=== PATIENT | male | born 1940 | race Caucasian/White ===

== ENCOUNTER 2016-08-16 07:09 | Emergency (ER) | payer OTHER, MEDICARE ==
[~2016-08-16] VITALS: Ht 182.9 cm; Wt 95.3 kg
[~2016-08-16 07:09] MED LIST: ASPIRIN EC325 M2 PO; ASPIRIN EC325 MG PO; ASPIRIN81 M4 PO; BACTROBAN15 GM TOP; CLEOCIN HCL300 M1 PO; CLOPIDOGREL75 M1 PO; CLOPIDOGREL75 MG PO; ECOTRIN81 MG PO; FOLIC ACID1 M1 PO; LIPITOR80 M1 PO; LOPRESSOR 25MG25 MG PO; MECLICOT12.5 MG PO; METFORMIN HCL500 M3 PO; OXYCODONE HCL5 M1 PO; OXYCODONE5 M1 PO; PRINIVIL 5MG5 MG PO; PRINIVIL5 M1 PO; ROBITUSSIN W/CO10 ML PO; VISINE-A EYE AL15 ML OPH; VITAMIN B121000 MCG PO; ZITHROMAX Z-PA250 M1 PO
--- NOTE | 2016-08-16 07:50 | ED CARDIAC/CP/PALPITATIONS ---
History of Present Illness General Chief Complaint: General Adult Stated Complaint: RIGHT ARM PAIN GOING IN TO CHEST Source: patient, old records Exam Limitations: no limitations Vital Signs & Intake/Output Vital Signs & Intake/Output Vital Signs Date Time Temp Pulse Resp B/P B/P Pulse O2 O2 Flow FiO2 Mean Ox Delivery Rate 08/16 0913 96.2 50 20 133/73 96 Room Air 08/16 0715 97.4 55 18 130/75 96 Room Air Allergies Coded Allergies: NO KNOWN ALLERGIES (10/23/15) Reconcile Medications Aspirin (Aspirin*) 81 MG TAB.CHEW 1 TAB PO DAILY HEART DISEASE Atorvastatin Calcium (Lipitor) 80 MG TABLET 1 TAB PO DAILY CHOLESTEROL ( Reported) Clopidogrel Bisulfate (Clopidogrel) 75 MG TABLET 1 TAB PO DAILY BLOOD THINNER (Reported) Folic Acid 1 MG TABLET 1 TAB PO DAILY SUPPLEMENT (Reported) Lisinopril (Prinivil) 5 MG TABLET 1 TAB PO DAILY BP (Reported) Metformin HCl 500 MG TABLET 1 TAB PO DAILY HIGH BLOOD SUGARS (Reported) Metoprolol Tartrate 25 MG TABLET 1 TAB PO BID BP (Reported) Triage Note: PT TO ED FOR R ARM PAIN S/P WASHING DISHES THIS MORNING. PT REPORTING HE WAS WASHING DISHES AND STARTED TO HAVE RIGHT BICEP PAIN THAT RADIATED INTO R SIDE OF HIS CHEST. PT STATING "I HAVE THREE STENTS IN MY ARM MAYBE THEY'RE F*CKED UP OR SOMETHING" PT DENIES SOB, WEST, L SIDED CHEST PAIN, NAUSEA OR VOMITING. Triage Nurses Notes Reviewed? yes Onset: Abrupt Duration: minute(s): (45) Timing: single episode today Quality/Severity: mild Location: RIGHT ARM Radiation: RIGHT CHEST Activities at Onset: WASHING DISHES HPI: This is a 75-year-old male with history of hypertension, coronary disease, status post cardiac stents presents to the ER with chief complaint of right arm pain that started while he was washing a lasagna henry this morning at 7:00. He states it was sharp in the right upper arm and went to his chest. Pain lasted a few minutes following its own.Associated shortness breath palpitations nausea or vomiting. Pain is dissimilar from his previous sharp chest and abdominal pain when he was diagnosed with an MRI. Currently pain is resolved. He took all of his morning medications except for his baby aspirin. He is a former drinker and former smoker quit many years ago. Patient is compliant with his medications on a daily basis. Past History Travel History Traveled to [place] past 21 day No Medical History Any Pertinent Medical History? 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 No Review of Systems Review of Systems Constitutional: Denies: chills, fever. EENTM: Reports: no symptoms. Respiratory: Denies: cough, short of breath. Cardiovascular: Reports: chest pain. Denies: palpitations, peripheral edema. GI: Denies: abdominal pain. Genitourinary: Reports: no symptoms. Musculoskeletal: Reports: back pain, muscle pain. Skin: Reports: no symptoms. Neurological/Psychological: Reports: no symptoms. Hematologic/Endocrine: Denies: bruising, bleeding, polyuria, polydipsia. Immunologic/Allergic: Denies: splenectomy. All Other Systems: Reviewed and Negative Physical Exam Physical Exam General Appearance: well developed/nourished, alert, awake, mild distress, obese Head: atraumatic, normal appearance Eyes: Bilateral: normal appearance, PERRL, EOMI. Ears, Nose, Throat: normal pharynx, hearing grossly normal Neck: normal inspection, supple, full range of motion Respiratory: normal breath sounds, no respiratory distress, RIGHT CHEST WALL TENDERNESS Cardiovascular: regular rate/rhythm Peripheral Pulses: 2+ radial (R), 2+ radial (L) Gastrointestinal: soft, non-tender Extremities: PAIN RIGHT BICEP MUSCLE Neurologic/Psych: no motor/sensory deficits, awake, alert, oriented x 3 Core Measures ACS in differential dx? Yes ASA ordered for poss ACS? Yes-ordered Severe Sepsis Present: No Septic Shock Present: No Progress Differential Diagnosis: AMI, aortic dissection, musculoskeletal pain, myocarditis, pericarditis, pneumonia, pneumothorax, pulmonary embolism, MUSCLE STRAIN, ROTATOR CUFF SPRAIN Plan of Care: Orders Procedure Date/time Status Telemetry/Print Washer 08/16 0759 Active TROPONIN LEVEL 08/16 0756 Complete COMPREHENSIVE METABOLIC PANEL 08/16 0756 Complete CBC WITHOUT DIFFERENTIAL 08/16 0756 Complete EKG 08/16 0710 Active Laboratory Tests 08/16/16 0805: Anion Gap 8, Estimated GFR 49 L, BUN/Creatinine Ratio 15.0, Glucose 117 H, Calcium 9.3, Total Bilirubin 0.9, AST 20, ALT 35, Alkaline Phosphatase 77, Troponin I < 0.01, Total Protein 6.5, Albumin 3.6, Globulin 2.9, Albumin/ Globulin Ratio 1.2, CBC w Diff NO MAN DIFF REQ, RBC 4.99, MCV 86.8, MCH 28.7, RDW 14.6 H, MPV 10.1, Gran % 66.8, Lymphocytes % 17.5 L, Monocytes % 9.2, Eosinophils % 4.9, Basophils % 1.6, Absolute Granulocytes 4.1, Absolute Lymphocytes 1.1 L, Absolute Monocytes 0.6, Absolute Eosinophils 0.3, Absolute Basophils 0.1, PUBS MCHC 33.1 08/16/2016 9:11:00 AM Patient without any other further episodes of right arm pain or chest pain. Aspirin given in the ER. Pain is extremely atypical for cardiac disease. He will not exert himself today I instructed him and the family that if he has any other episode of chest pain or arm pain without exertion that he should return to the ER. (BILL DAY,ELEONORA) Initial ED EKG: NSR Prior EKG: unchanged Departure Departure Time of Disposition: 910 Disposition: HOME OR SELF CARE Condition: Stable Clinical Impression Primary Impression: Pain, arm, right Referrals: JAZMIN DAY,ANDREW Amador (PCP/Family) HECTOR DAY,Tiki SUAREZ Additional Instructions: Avoid any exertion today. If you have another episode of right arm pain or chest pain at rest please return to the ER. Follow up with Dr. Renteria in the office. Departure Forms: Customer Survey General Discharge Information Critical Care Note Critical Care Note Critical Care Time: non-applicable
[2016-08-16 08:15] LABS: ABSOLUTE EOSINOPHIL COUNT 0.3 /CUMM (0.0-0.7); ABSOLUTE GRANULOCYTE CT 4.1 /CUMM (1.4-6.5); ABSOLUTE LYMPH COUNT 1.1 /CUMM (1.2-3.4); ABSOLUTE MONOCYTE COUNT 0.6 /CUMM (0.10-0.60); WHITE BLOOD CELL COUNT 6.2 /CUMM (4.8-10.8)
[2016-08-16 08:18] LABS: ABSOLUTE BASOPHIL COUNT 0.1 /CUMM (0.0-0.2); BASOPHIL % 1.6 % (0.0-2.0); EOSINOPHIL % 4.9 % (0-5); GRANULOCYTE % 66.8 % (42.2-75.2); HEMATOCRIT 43.3 % (42-52); MEAN CORPUSCULAR HGB 28.7 PG (27.0-31.0); MEAN CORPUSCULAR HGB CONC 33.1 G/DL (33.0-37.0); MEAN CORPUSCULAR VOLUME 86.8 FL (80.0-94.0); MEAN PLATELET VOLUME 10.1 FL (7.4-10.4); PLATELET COUNT 171 /CUMM (130-400); RBC DISTRIBUTION WIDTH 14.6 % (11.5-14.5); RED BLOOD CELL CT 4.99 /CUMM (4.70-6.10)
[2016-08-16] MEDS ORDERED: METOPROLOL TART25 M1 PO (08:33)
[2016-08-16 09:13] VITALS: BP 133/73
== END 2016-08-16 09:17 ==
LOC: ERH 07:09
PROVIDERS: Emergency Medicine
DX: M79.601 Pain in right arm (principal)
CPT/HCPCS: 93005; 93010; J3490

== ENCOUNTER 2017-05-08 14:45 | Emergency (ER) | payer OTHER, MEDICARE ==
[~2017-05-08] VITALS: Ht 167.6 cm; Wt 95.3 kg
[~2017-05-08 14:45] MED LIST changes: +AZITHROMYCIN250 M1 PO; +KEFLEX500 M1 PO; +METOPROLOL TART25 M1 PO; +TESSALON PERLE100 M1 PO; +ZITHROMAX250 M2 PO
--- NOTE | 2017-05-08 14:55 | ED CARDIAC/CP/PALPITATIONS ---
History of Present Illness General Chief Complaint: Chest Pain Stated Complaint: CP, X 10 MIN Source: patient Exam Limitations: no limitations Allergies Coded Allergies: NO KNOWN ALLERGIES (10/23/15) Reconcile Medications Aspirin (Aspirin*) 81 MG TAB.CHEW 1 TAB PO DAILY HEART DISEASE Atorvastatin Calcium (Lipitor) 80 MG TABLET 1 TAB PO DAILY CHOLESTEROL ( Reported) Clopidogrel Bisulfate (Clopidogrel) 75 MG TABLET 1 TAB PO DAILY BLOOD THINNER (Reported) Folic Acid 1 MG TABLET 1 TAB PO DAILY SUPPLEMENT (Reported) Lisinopril (Prinivil) 5 MG TABLET 1 TAB PO DAILY BP (Reported) Metformin HCl 500 MG TABLET 1 TAB PO DAILY HIGH BLOOD SUGARS (Reported) Metoprolol Tartrate 25 MG TABLET 1 TAB PO BID BP (Reported) Triage Nurses Notes Reviewed? yes Onset: Abrupt Duration: minute(s): (10-15) Timing: recent history Radiation: no radiation HPI: 76-year-old male comes into the emergency room with complaints of chest pain. Symptoms began about 15 minutes prior to arrival. Sharp. Denies any shortness of breath fever chills vomiting. Denies any diaphoresis. Patient was lying down when he started to experience pain. History of coronary disease with multiple stents in his heart. (Alberto PAVON,James) Vital Signs & Intake/Output Vital Signs & Intake/Output Vital Signs Date Time Temp Pulse Resp B/P B/P Pulse O2 O2 Flow FiO2 Mean Ox Delivery Rate 05/08 2016 97 Room Air 05/08 2005 98.0 70 20 148/80 96 05/08 1901 98.1 69 18 152/84 96 Room Air 05/08 1456 96.0 76 20 152/85 96 Room Air ED Intake and Output 05/09 0000 05/08 1200 Intake Total Output Total Balance Patient 210 lb Weight Weight Reported by Patient Measurement Method (Hollis DAY,Alexander Ellison) Past History Travel History Traveled to [place] past 21 day No Medical History Any Pertinent Medical History? see below for history Neurological: NONE EENT: NONE Cardiovascular: CAD, hypertension, hyperlipidemia, myocardial infarction, STENTS Respiratory: NONE Gastrointestinal: GERD Hepatic: NONE Renal: NONE Musculoskeletal: chronic back pain Psychiatric: alcohol dependence Endocrine: diabetes Blood Disorders: NONE Cancer(s): NONE PROPERTY SPECIALIST/Reproductive: NONE History of MRSA: No History of VRE: No History of CDIFF: No Tetanus Vaccine: 11/15/16 Surgical History Surgical History: 4 STENTS HERNIA REPAIR Psychosocial History Who do you live with Friend Services at Home None What is your primary language Slovak Family History Family History, If Any: Relation not specified for: *No pertinent family history Hx Contributory? No (James Byrd) Review of Systems Review of Systems Constitutional: Reports: no symptoms. EENTM: Reports: no symptoms. Respiratory: Reports: no symptoms. Cardiovascular: Reports: see HPI. GI: Reports: no symptoms. Genitourinary: Reports: no symptoms. Musculoskeletal: Reports: no symptoms. Skin: Reports: no symptoms. Neurological/Psychological: Reports: no symptoms. Hematologic/Endocrine: Reports: no symptoms. Immunologic/Allergic: Reports: no symptoms. All Other Systems: Reviewed and Negative (James Byrd) Physical Exam Physical Exam General Appearance: well developed/nourished, no apparent distress, alert, awake Head: atraumatic, normal appearance Eyes: Bilateral: normal appearance, EOMI. Ears, Nose, Throat: normal ENT inspection, hearing grossly normal Neck: normal inspection Respiratory: normal breath sounds, no respiratory distress Cardiovascular: regular rate/rhythm Back: normal inspection Extremities: normal inspection Neurologic/Psych: awake, alert, oriented x 3, normal gait, normal mood/affect Skin: intact, normal color (James Byrd) Core Measures ACS in differential dx? No CVA/TIA Diagnosis No Sepsis Present: No Sepsis Focused Exam Completed? No (Hollis DAY,Alexander Ellison) Progress Differential Diagnosis: AMI, atrial fibrillation, cholecystitis, costochondritis , hyperthyroid, hyperventilation, intracranial hemorrhage, musculoskeletal pain, myocarditis, pancreatitis, pericarditis, pneumonia, pneumothorax, pulmonary embolism, PUD/GERD, PVCs/PACs, sepsis Diagnostic Imaging: Viewed by Me: Radiology Read. Discussed w/RAD: Radiology Read. Radiology Impression: PATIENT: CAROL DOWELL PRESENT AGE: 76 PATIENT ACCOUNT NO: [id number] : 39 LOCATION: [facility] ORDERING PHYSICIAN: James PAVON SERVICE DATE: 05/08/173670 EXAM TYPE : RAD - XRY-CHEST XRAY, TWO VIEWS EXAMINATION: XR CHEST CLINICAL INFORMATION: Chest pain COMPARISON: 01/30/2017 TECHNIQUE: 2 views of the chest were obtained. FINDINGS: The lungs are well expanded. Pleural thickening along the right lateral chest wall is unchanged. No consolidation, edema, or effusion. No pneumothorax. The cardiomediastinal silhouette is unchanged. No acute osseous abnormality. IMPRESSION: No acute pulmonary findings. Pleural thickening along the lateral right hemithorax again noted. DICTATED BY: Abdirizak Jeronimo MD DATE/TIME DICTATED:05/08/171531 CLOTH BLEACHING RANGE TENDER:ALBINA DATE/TIME TRANSCRIBED:05/08/171531 CONFIDENTIAL, DO NOT COPY WITHOUT APPROPRIATE AUTHORIZATION. <Electronically signed in Other Vendor System> SIGNED BY: Abdirizak Jeronimo MD 05/08/171537 Initial ED EKG: normal sinus rhythm, rate (80), nonspecific ST T wave chg (James Byrd) Repeat EKG: unchanged Hand-Off Endorsed To: Hollis DAY,Alexander Ellison Endorsed Time: 1899 Pending: EKG, other (REPEAT TROPONIN) (Laisha DAY,Dolores) Plan of Care: Orders Procedure Date/time Status TROPONIN LEVEL 05/08 1900 Complete EKG 05/08 1900 Active PARTIAL THROMBOPLASTIN TIME 05/08 1456 Complete PROTHROMBIN TIME 05/08 1456 Complete TROPONIN LEVEL 05/08 1454 Complete COMPREHENSIVE METABOLIC PANEL 05/08 1454 Complete CBC WITHOUT DIFFERENTIAL 05/08 1454 Complete EKG 05/08 1446 Active Laboratory Tests 05/08/17 1857: Troponin I < 0.01 05/08/17 1500: Anion Gap 11, Estimated GFR 49 L, BUN/Creatinine Ratio 19.3, Glucose 106 H, Calcium 9.3, Total Bilirubin 0.7, AST 37, ALT 44, Alkaline Phosphatase 84, Troponin I < 0.01, Total Protein 6.9, Albumin 3.8, Globulin 3.1, Albumin/ Globulin Ratio 1.2, PT 11.3, INR 1.04, APTT 30, CBC w Diff NO MAN DIFF REQ, RBC 5.09, MCV 86.5, MCH 29.1, MCHC 33.6, RDW 14.5, MPV 9.8, Gran % 69.4, Lymphocytes % 18.9 L, Monocytes % 8.0, Eosinophils % 3.0, Basophils % 0.7, Absolute Granulocytes 5.2, Absolute Lymphocytes 1.4, Absolute Monocytes 0.6, Absolute Eosinophils 0.2, Absolute Basophils 0.1 (Alexander Shafer MD) Departure Departure Condition: Stable Departure Forms: Customer Survey General Discharge Information (James Byrd) Departure Clinical Impression Primary Impression: Chest pain at rest PA/HEEL SPRAYER Co-Sign Statement Statement: ED Attending supervision documentation- [X] I saw and evaluated the patient. I have also reviewed all the pertinent lab results and diagnostic results. I agree with the findings and the plan of care as documented in the PA's/HEEL SPRAYER's documentation. [X] I have reviewed the ED Record and agree with the PA's/HEEL SPRAYER's documentation. [] Additions or exceptions (if any) to the PAs/HEEL SPRAYER's note and plan are summarized below: [] (Laisha DAY,Dolores) Departure Disposition: HOME OR SELF CARE Referrals: Reji DAY,Peter Amador (PCP/Family) Tiki Young MD Additional Instructions: FOLLOW UPW ITH DR. YOUNG RETURN IF SYMPTOMS WORSEN OR FOR ANY CONCERNS (Alexander Shafer MD) Critical Care Note Critical Care Note Critical Care Time: non-applicable (Alexander Shafer MD)
[2017-05-08 15:15] LABS: ABSOLUTE BASOPHIL COUNT 0.1 /CUMM (0.0-0.2); ABSOLUTE EOSINOPHIL COUNT 0.2 /CUMM (0.0-0.7); ABSOLUTE GRANULOCYTE CT 5.2 /CUMM (1.4-6.5); ABSOLUTE LYMPH COUNT 1.4 /CUMM (1.2-3.4); ABSOLUTE MONOCYTE COUNT 0.6 /CUMM (0.10-0.60); BASOPHIL % 0.7 % (0.0-2.0); GRANULOCYTE % 69.4 % (42.2-75.2); MEAN CORPUSCULAR HGB 29.1 PG (27.0-31.0); MEAN CORPUSCULAR HGB CONC 33.6 G/DL (33.0-37.0); MEAN CORPUSCULAR VOLUME 86.5 FL (80.0-94.0); MEAN PLATELET VOLUME 9.8 FL (7.4-10.4); PLATELET COUNT 193 /CUMM (130-400); RBC DISTRIBUTION WIDTH 14.5 % (11.5-14.5); RED BLOOD CELL CT 5.09 /CUMM (4.70-6.10); WHITE BLOOD CELL COUNT 7.5 /CUMM (4.8-10.8)
[2017-05-08 15:18] LABS: PT 11.3 SEC (9.4-12.5); PTT 30 SEC (25-37)
--- NOTE | 2017-05-08 15:38 | RADIOLOGY REPORT ---
EXAMINATION: XR CHEST CLINICAL INFORMATION: Chest pain COMPARISON: 01/30/2017 TECHNIQUE: 2 views of the chest were obtained. FINDINGS: The lungs are well expanded. Pleural thickening along the right lateral chest wall is unchanged. No consolidation, edema, or effusion. No pneumothorax. The cardiomediastinal silhouette is unchanged. No acute osseous abnormality. IMPRESSION: No acute pulmonary findings. Pleural thickening along the lateral right hemithorax again noted.
[2017-05-08 20:05] VITALS: BP 148/80
== END 2017-05-08 20:17 ==
LOC: ERH 14:45
PROVIDERS: Physician Assistant Medical
DX: R07.9 Chest pain, unspecified (principal)
CPT/HCPCS: 71046; 93005; 93010

== ENCOUNTER 2017-09-05 20:56 | Observation (INO) | payer OTHER, MEDICARE ==
[~2017-09-05] VITALS: Ht 172.7 cm; Wt 95.3 kg
[2017-09-05 21:50] LABS: ABSOLUTE BASOPHIL COUNT 0 /CUMM (0.0-0.2); ABSOLUTE EOSINOPHIL COUNT 0.2 /CUMM (0.0-0.7); ABSOLUTE GRANULOCYTE CT 3.5 /CUMM (1.4-6.5); ABSOLUTE LYMPH COUNT 1.2 /CUMM (1.2-3.4); ABSOLUTE MONOCYTE COUNT 0.8 /CUMM (0.10-0.60); BASOPHIL % 0.3 % (0.0-2.0); EOSINOPHIL % 3.3 % (0-5); GRANULOCYTE % 62.1 % (42.2-75.2); MEAN CORPUSCULAR HGB 29.2 PG (27.0-31.0); MEAN CORPUSCULAR HGB CONC 33.5 G/DL (33.0-37.0); MEAN CORPUSCULAR VOLUME 87.3 FL (80.0-94.0); MEAN PLATELET VOLUME 9.9 FL (7.4-10.4); PLATELET COUNT 180 /CUMM (130-400); RBC DISTRIBUTION WIDTH 14.6 % (11.5-14.5); RED BLOOD CELL CT 4.81 /CUMM (4.70-6.10); WHITE BLOOD CELL COUNT 5.6 /CUMM (4.8-10.8)
--- NOTE | 2017-09-05 22:46 | ED CARDIAC/CP/PALPITATIONS ---
History of Present Illness General Chief Complaint: Chest Pain Stated Complaint: CP X1 HOUR, TOOK NITRO, NO RELIEF Source: patient Exam Limitations: no limitations Vital Signs & Intake/Output Vital Signs & Intake/Output Vital Signs Date Time Temp Pulse Resp B/P B/P Pulse O2 O2 Flow FiO2 Mean Ox Delivery Rate 09/06 0002 97.8 58 18 119/63 09/06 0001 97.8 58 18 119/63 95 Room Air 09/05 2110 97.7 70 18 130/76 95 Room Air ED Intake and Output 09/06 0000 09/05 1200 Intake Total Output Total Balance Patient 210 lb Weight Weight Reported by Patient Measurement Method Allergies Coded Allergies: NO KNOWN ALLERGIES (10/23/15) Reconcile Medications Aspirin (Aspirin*) 81 MG TAB.CHEW 1 TAB PO DAILY HEART DISEASE Atorvastatin Calcium (Lipitor) 80 MG TABLET 1 TAB PO DAILY CHOLESTEROL ( Reported) Clopidogrel Bisulfate (Clopidogrel) 75 MG TABLET 1 TAB PO DAILY BLOOD THINNER (Reported) Folic Acid 1 MG TABLET 1 TAB PO DAILY SUPPLEMENT (Reported) Lisinopril (Prinivil) 5 MG TABLET 1 TAB PO DAILY BP (Reported) Metformin HCl 500 MG TABLET 1 TAB PO DAILY HIGH BLOOD SUGARS (Reported) Metoprolol Tartrate 25 MG TABLET 1 TAB PO BID BP (Reported) Triage Note: PT FROM HOME C/O CP X20 MINS PRIOR TO ARRIVAL. PT STATES HE WAS WASHING DISHING AND BEGAN TO HAVE A SHARP STABBING LEFT CHEST WALL PAIN THAT IS NONRADIATING. PT STATES LEFT ARM NUMBNESS AND PAIN. PT A&0X3, DENIES N/V, JAW OR BACK PAIN. BSG 114, TYPE 1 DIABETIC. PT HAS HX OF 4 STENTS PLACED , CAD, HTN, HYPERLIPIDEMIA, ALCOHOL DEPENDENCE AND DIABETES. PTS VSS. EKG COMPLETED. Triage Nurses Notes Reviewed? yes Onset: Abrupt Duration: minute(s): (30), better, gone now Timing: single episode today Quality/Severity: moderate, sharp, stabbing Location: LEFT CHEST Radiation: shoulders (LEFT) Activities at Onset: activity Prior Chest Pain/Card Workup: cardiac cath, heart attack Modifying Factors: Improves With: nitroglycerin. Nitro Today/Relief: 0.4 mg x 1, provided at home, complete relief Aspirin Today: 81 mg x 1, provided at home HPI: 76-year-old male history of coronary artery disease hypertension and hyperlipidemia GA with stents presents for evaluation of chest pain. Patient reports symptoms started about 30 minutes prior to presentation. He was washing dishes when he suddenly felt acute onset of sharp left-sided chest pain. The pain radiated into his left arm and shoulder. Patient reports she immediately took a nitroglycerin and the symptoms resolved several minutes later. Several minutes later pain did return again but resolved several minutes later again. There was associated shortness of breath. No sweats or chills no nausea or vomiting. Patient has been a cigarette the medics since. He apparently had a normal cardiac cath in June. No recent surgery or recent trauma no lower extremity edema no hemoptysis (Herbie Dill) Past History Travel History Traveled to [place] past 21 day No Medical History Any Pertinent Medical History? see below for history Neurological: NONE EENT: NONE Cardiovascular: CAD, hypertension, hyperlipidemia, myocardial infarction, STENTS Respiratory: NONE Gastrointestinal: GERD Hepatic: NONE Renal: NONE Musculoskeletal: chronic back pain Psychiatric: alcohol dependence Endocrine: diabetes Blood Disorders: NONE Cancer(s): NONE FLIGHT SUPERINTENDENT/Reproductive: NONE History of MRSA: No History of VRE: No History of CDIFF: No Tetanus Vaccine: 11/15/16 Surgical History Surgical History: 4 STENTS HERNIA REPAIR Psychosocial History Who do you live with Friend Services at Home None What is your primary language Urdu Tobacco Use: Current Not Daily Daily Tobacco Use Amount/Type: Cigar or Pipe use daily Family History Family History, If Any: Relation not specified for: *No pertinent family history Hx Contributory? No (Herbie Dill) Review of Systems Review of Systems Constitutional: Reports: no symptoms. EENTM: Reports: no symptoms. Respiratory: Reports: see HPI, short of breath. Cardiovascular: Reports: see HPI, chest pain. GI: Reports: no symptoms. Genitourinary: Reports: no symptoms. Musculoskeletal: Reports: no symptoms. Skin: Reports: no symptoms. Neurological/Psychological: Reports: no symptoms. Hematologic/Endocrine: Reports: no symptoms. Immunologic/Allergic: Reports: no symptoms. All Other Systems: Reviewed and Negative (Herbie Dill) Physical Exam Physical Exam General Appearance: well developed/nourished, no apparent distress, alert, awake Head: atraumatic, normal appearance Eyes: Bilateral: normal appearance, PERRL, EOMI. Ears, Nose, Throat: hearing grossly normal Neck: normal inspection, supple, full range of motion Respiratory: normal breath sounds, chest non-tender, no respiratory distress, lungs clear Cardiovascular: regular rate/rhythm, normal peripheral pulses Peripheral Pulses: 2+ radial (R), 2+ radial (L) Gastrointestinal: normal bowel sounds, soft, non-tender, no organomegaly Back: normal inspection, normal range of motion, no vertebral tenderness Extremities: normal inspection, normal range of motion, no edema Neurologic/Psych: no motor/sensory deficits, awake, alert, oriented x 3, normal gait Skin: intact, normal color, warm/dry Core Measures ACS in differential dx? Yes CVA/TIA Diagnosis No Sepsis Present: No Sepsis Focused Exam Completed? No (Herbie Dill) Progress Differential Diagnosis: AMI, aortic dissection, atrial fibrillation, cholecystitis, CHF/pulm edema, costochondritis, musculoskeletal pain, pancreatitis, pericarditis, pneumonia, pneumothorax, PSVT, pulmonary embolism, PUD/GERD, PVCs/PACs, rib fracture, unstable angina Plan of Care: Orders Procedure Date/time Status Nothing by Mouth 09/[address] in observation 09/06 001 Active Patient Data 09/06 0010 Active Saline Lock 09/05 235 Active Misc Message 09/05 235 Active ED Holding Orders 09/05 2354 Active Vital Signs 09/05 235 Active Code Status 09/05 235 Active Add-on Test (ER Only) 09/05 215 Active MAGNESIUM 09/05 2120 Complete ETHANOL 09/05 2120 Complete TROPONIN LEVEL 09/06 2103 Complete COMPREHENSIVE METABOLIC PANEL 09/06 2103 Complete CBC WITHOUT DIFFERENTIAL 09/06 2103 Complete EKG 09/05 2056 Active Laboratory Tests 09/05/17 212: Anion Gap 12, Estimated GFR 45 L, BUN/Creatinine Ratio 15.3, Glucose 114 H, Calcium 9.2, Magnesium 1.8, Total Bilirubin 0.7, AST 22, ALT 22, Alkaline Phosphatase 56, Troponin I < 0.01, Total Protein 6.3, Albumin 3.4 L, Globulin 2.9, Albumin/Globulin Ratio 1.2, CBC w Diff NO MAN DIFF REQ, RBC 4.81, MCV 87.3, MCH 29.2, MCHC 33.5, RDW 14.6 H, MPV 9.9, Gran % 62.1, Lymphocytes % 20.5, Monocytes % 13.8 H, Eosinophils % 3.3, Basophils % 0.3, Absolute Granulocytes 3.5, Absolute Lymphocytes 1.2, Absolute Monocytes 0.8 H, Absolute Eosinophils 0.2, Absolute Basophils 0, Serum Alcohol < 10.0 Patient is here with acute onset of chest pain that started while he was doing dishes. The chest pain is also minutes after taking nitroglycerin. It has been astigmatic since. There was associated shortness of breath the pain is in the left chest and radiates to the left arm. Patient does have stents he has a history of acute coronary syndromes. Patient will be admitted to the hospital for further evaluation and treatment to rule out acute coronary syndrome. Patient had nitroglycerin responsive chest pain. Case discussed with Dr. Eldridge he agrees. Diagnostic Imaging: Viewed by Me: Radiology Read. Discussed w/RAD: Radiology Read. CXR Impression: PATIENT: CAROL DOWELL PRESENT AGE : 76 PATIENT ACCOUNT NO: [id number] : 39 LOCATION: [facility] ORDERING PHYSICIAN: Herbie PAVON SERVICE DATE: 09/05/17 EXAM TYPE: RAD - XRY- PORTABLE CHEST XRAY EXAMINATION: XR PORTABLE CHEST CLINICAL INFORMATION: Pneumonia, congestive heart failure, chest pain COMPARISON: 05/08/2017 TECHNIQUE : Portable frontal view of the chest was obtained. FINDINGS: Lung volumes are low. No focal consolidation or mass. No pleural effusion or pneumothorax. Cardiac silhouette is prominent, likely accentuated by AP technique and low lung volumes. Degenerative changes of the bilateral shoulders. IMPRESSION: Low lung volumes but no acute pulmonary disease. DICTATED BY: Librado Pink MD DATE/ TIME DICTATED:09/05/172312 HOSPITAL NURSING ASSISTANT:ALBINA DATE/TIME TRANSCRIBED: 09/05/172312 CONFIDENTIAL, DO NOT COPY WITHOUT APPROPRIATE A Initial ED EKG: normal sinus rhythm, DIFFUSE t-WAVE FLATTENING APPEARS SOMEWHAT WORSE COMPARED TO PREVIOUS Prior EKG: unchanged (Herbie Dill) Departure Departure Disposition: STILL A PATIENT Condition: Stable Clinical Impression Primary Impression: Chest pain Qualifiers: Chest pain type: unspecified Qualified Code: R07.9 - Chest pain, unspecified Referrals: Reji DAY,Peter Amador (PCP/Family) Departure Forms: Customer Survey General Discharge Information Observation Note Spoke With: Harshal Mckinley MD Physician Advisor Notified: MAC ELDRIDGE DO Place Patient In: Non-ED OBS Care Area Rationale for Observation: My rational for observation is as follows [serial labs, echocardiogram, serial EKGs, telemetry, cardiology]. (Herbie Dill) PA/ADOBE LAYER Co-Sign Statement Statement: ED Attending supervision documentation- [x] I saw and evaluated the patient. I have also reviewed all the pertinent lab results and diagnostic results. I agree with the findings and the plan of care as documented in the PA's/ADOBE LAYER's documentation. [] I have reviewed the ED Record and agree with the PA's/ADOBE LAYER's documentation. [] Additions or exceptions (if any) to the PAs/ADOBE LAYER's note and plan are summarized below: [] I saw and evaluated the patient. He was in no acute distress on my exam. He had no chest pain at that time. He has a history of coronary artery disease. He was to be placed in observation. (Mac Eldridge DO) Critical Care Note Critical Care Note Critical Care Time: non-applicable (Herbie Dill)
--- NOTE | 2017-09-05 23:18 | RADIOLOGY REPORT ---
EXAMINATION: XR PORTABLE CHEST CLINICAL INFORMATION: Pneumonia, congestive heart failure, chest pain COMPARISON: 05/08/2017 TECHNIQUE: Portable frontal view of the chest was obtained. FINDINGS: Lung volumes are low. No focal consolidation or mass. No pleural effusion or pneumothorax. Cardiac silhouette is prominent, likely accentuated by AP technique and low lung volumes. Degenerative changes of the bilateral shoulders. IMPRESSION: Low lung volumes but no acute pulmonary disease.
--- NOTE | 2017-09-06 00:48 | History & Physical ---
John PaulMary 09/06/17 0048: General Information and HPI History of Present Illness: Chris Harrison is a 76 YO very pleasant and affable man with a PMHx. of HTN, HLD, and Type 2 DM who presents to the ED with a chief complaint of "chest pain. " Patient states that he experienced chest pain today while washing dishes in the kitchen and that the chest pain lasted approximately 20 minutes. Patient states the pain was located in the left-side of his chest with radiation into his left hand. Patient described the pain as a sharp pain and only felt a similar pain before several years ago. Patient denies engaging in any activities today where he would be overexerting himself. Patient does admit to drinking 3 cups of coffee regularly. Patient denies any shortness of breath, lightheadedness, dizziness, weakness, cough, dysuria, and fevers. Patient states he watches his salt intake and generally has a good appetite. Patient states he is retired. Patient denies drinking alcoholic beverages. Patient is a former smoker who quit more than 20 years ago, and typically used to smoke cigars. Patient follows Dr. Renteria (Cardiology) whom he last saw in June 2017. Patient had a normal cardiac catherization test during that previous visit. Allergies/Medications Allergies: Coded Allergies: NO KNOWN ALLERGIES (10/23/15) Home Med list Aspirin (Aspirin*) 81 MG TAB.CHEW 1 TAB PO DAILY HEART DISEASE Atorvastatin Calcium (Lipitor) 80 MG TABLET 1 TAB PO DAILY CHOLESTEROL ( Reported) Clopidogrel Bisulfate (Clopidogrel) 75 MG TABLET 1 TAB PO DAILY BLOOD THINNER (Reported) Folic Acid 1 MG TABLET 1 TAB PO DAILY SUPPLEMENT (Reported) Lisinopril (Prinivil) 5 MG TABLET 1 TAB PO DAILY BP (Reported) Metformin HCl 500 MG TABLET 1 TAB PO DAILY HIGH BLOOD SUGARS (Reported) Metoprolol Tartrate 25 MG TABLET 1 TAB PO BID BP (Reported) Past History Travel History Traveled to [place] past 21 day No Medical History Neurological: NONE EENT: NONE Cardiovascular: CAD, hypertension, hyperlipidemia, myocardial infarction, STENTS Respiratory: NONE Gastrointestinal: GERD Hepatic: NONE Renal: NONE Musculoskeletal: chronic back pain Psychiatric: alcohol dependence Endocrine: diabetes Blood Disorders: NONE Cancer(s): NONE CLINICAL PROGRAM DIRECTOR/Reproductive: NONE History of MRSA: No History of VRE: No History of CDIFF: No Tetanus Vaccine: 11/15/16 Surgical History Surgical History: 4 STENTS HERNIA REPAIR Past Family/Social History Family History Relations & Conditions if any Relation not specified for: *No pertinent family history Psychosocial History Who Do You Live With? self Services at Home: None Smoking Status: Former Smoker ETOH Use: denies use Illicit Drug Use: denies illicit drug use Functional Ability ADLs Independent: dressing, eating, toileting, bathing. Ambulation: independent IADLs Independent: shopping, housework, finances, food prep, telephone, transportation , medication admin. Review of Systems Review of Systems Constitutional: Denies: chills, diaphoresis, fever, weakness. EENTM: Denies: double vision, visual changes. Cardiovascular: Reports: chest pain. Denies: edema, orthopena, palpitations, peripheral edema. Respiratory: Denies: cough, orthopnea, short of breath. GI: Denies: abdominal pain, diarrhea, nausea. Genitourinary: Denies: dysuria, frequency. Musculoskeletal: Denies: joint pain. Skin: Denies: no symptoms. Neurological/Psychological: Denies: headache. Exam & Diagnostic Data Last 24 Hrs of Vital Signs/I&O Vital Signs Date Time Temp Pulse Resp B/P B/P Pulse O2 O2 Flow FiO2 Mean Ox Delivery Rate 09/06 0002 97.8 58 18 119/63 0711 0001 97.8 58 18 119/63 95 Room Air 09/05 2110 97.7 70 18 130/76 95 Room Air Intake & Output 09/06 0800 09/06 0000 09/05 1600 Intake Total Output Total Balance Patient 210 lb 210 lb Weight Weight Reported by Patient Measurement Method Physical Exam General Appearance Alert, Oriented X3, Cooperative, No Acute Distress Skin No Rashes HEENT Atraumatic, PERRLA Neck Supple Lymphatic Cervical nl Cardiovascular Normal S1, Normal S2, No Murmurs Lungs Clear to Auscultation Abdomen Normal Bowel Sounds, Soft, No Tenderness Neurological Strength at 5/5 X4 Ext, Normal Tone, Sensation Intact Extremities Normal Pulses, 1+ edema b/l lower extremities Assessment/Plan Assessment: Pertinent Labs/Imaging: - Troponin x1 normal (0.01) - CXR: Low lung volumes but no acute pulmonary disease. - EKG: NSR, T Wave Flattening V5/V6 Etiology in this case of angina pectoris with history of typical chest pain symptoms, normal EKG and Troponins with minimal lower extremity edema on physical exam is likely related to unstable angina. Differential also includes costochondritis, GERD, myocarditis, Prinzmetal angina. Treatment includes ASA therapy for cardiac benefit and follow up with labs/imaging/EKG. ASSESSMENT: 1. Unstable Angina, ACS 2. h/o HTN 3. h/o HLD 4. h/o Type 2 DM Unstable Angina - Admit to telemetry for cardiac monitoring and assessment of vitals - AM Cardiology Consultation; wait on Heparin IV anti-thrombotic therapy upon recommendation from Cardioloy Consult - ASA 81 mg and Atorvastatin - Metoprolol 25 mg BID - Clopidogrel 75 mg; Lisinopril 5 mg - Serial EKG and Troponins (follow at 10 AM) - NPO; Await recommendation for morning ECHO - Continue home medications - DVT PPx. As Ranked By This Provider Problem List: 1. Unstable angina 2. Hyperlipidemia 3. HYPERTENTION 4. ACUTE CORONARY SYNDROME Core Measures/Misc (11/13) Acute Coronary Syndrome ACS Diagnosis: Yes Congestive Heart Failure Congestive Heart Failure Diagnosis No Cerebrovascular Accident CVA/TIA Diagnosis: No VTE (View Protocol) VTE Risk Factors Acute Medical Illness No Mechanical VTE Prophylaxis d/t N/A MechProphylax Ordered No VTE Pharm Prophylaxis d/t NA PharmProphylax ordered Sepsis (View protocol) Sepsis Present: No If YES complete Sepsis Event Note If YES complete Sepsis Event Note Harshal Mckinley MD 09/06/17 0159: Core Measures/Misc (11/13) Sepsis (View protocol) If YES complete Sepsis Event Note If YES complete Sepsis Event Note Attending MD Review Statement Attending Statement Attending MD Statement: examined this patient, discuss w/resident/PA/PRODUCTION PAINTER, agreed w/resident/PA/PRODUCTION PAINTER, reviewed EMR data (avail) Attending Assessment/Plan: 76M PMH CAD s/p stent, CKD stage 3A, HTN, T2DM, GERD, cervical myelopathy with crushing left sided chest pain that radiating to left arm that started while washing dishes, took a SL nitro with relief of pain within minutes. Asymptomatic here, EKG NSR unchanged from prior, troponin negative. No SOB, diaphoresis, lightheadedness. WIll place in observation in telemetry, serial troponin and EKG, cardiology consult, continue home medications, DVT PPx Manolo Carolina 09/06/17 4266: Observation Initial Note - I have personally examined CHRIS HARRISON on 09/06/17 at 0436. The disposition of CHRIS HARRISON is uncertain at this time and before a determination can be made, he requires a period of observation for the following reasons [chest pain] Core Measures/Misc (11/13) Sepsis (View protocol) If YES complete Sepsis Event Note If YES complete Sepsis Event Note Resident Review Statement Resident Statement: examined this patient, discussed with internal communications specialist, reviewed images Other Findings: Mr Harrison is a 76 year old male w/ a PMHx of h/o CAD s/p stent, CKD stage 3A , HTN, T2DM, GERD, cervical myelopathy came to the hospital with a chief concern of chest discomfort 20 minutes prior to that or to the ER. He was apparently washing his dishes at the time. Pain localized to the left side of the chest, non radiating. He also reported left arm numbness, and the episode lasted for not more than 20 min. Did not have any diaphoresis, nausea or vomiting or back pain. His recent stress test was negative. Other ROS negative. At the time of admission-temperature 97.7, pulse rate 70, respiration 18, blood pressure 1 3776, pulse ox 94% on room air. General Exam: AAOx3, No acute distress, Skin: No rashes, no breakdown;HEENT: PERRLA, EOMI;Neck: Supple, No JVD; No cervical lymphadenopathy;CVS: Reg Rate, Normal S1,S2, No MGR;Resp: Normal air entry, no ronchi/rales;Abdomen: Soft, No tenderness, Normal Bowel Sounds;Neuro: Normal Speech, Strength 5/5 b/l x 4 extremities, Sensation intact, CN III-XII NL, Reflexes 2+;Extremities: No cyanosis, 2+ pedal edema Pertinent Findings: WBC 5.6, hemoglobin 14.1, platelet count 180. Sodium 142, potassium 4.1, chloride 103 next line, dioxide 26, anion gap 12 BUN 23, creatinine 1.5 (baseline 1.3 from 1.5), glucose 114. Troponin I of 0.01. Alcohol negative. Chest x ray- Low lung volumes but no acute pulmonary disease. Echo- 29 April 2015 2. Mild aortic sclerosis is present with minimal to mild aortic insufficiency. Mild dilatation of the ascending aorta is present. 3. Mitral leaflet thickening is present with mild mitral insufficiency and mild left atrial dilatation. There is no valvular prolapse. 4. No pericardial fluid was identified on the study. 5. The left ventricular chamber size is normal. Mild to moderate concentric hypertrophy is present. Fibrosis of the posteromedial papillary muscle is present. The ejection fraction is normal. Accurate wall motion assessment was not possible due to the quality of the images obtained. 6. The right heart chambers and valvular structures were not optimally visualized. The right ventricular systolic pressure could not be assessed on this study. 7. Mild left ventricular diastolic dysfunction is present. 8. A follow-up examination with IV contrast as suggested to better assess left ventricular function and wall motion. Etiology in this case is likely unstable angina with symptoms of chest pain w/ no elevated cardiac enzymes with positive cardiac risk factors tobacco use, age, HLD, DM, HTN, previous h/o of CAD. Problem list: 1. Unstable angina, r/o ACS 2. history of CAD s/p stent 3. h/o CKD stage 3A, 4. h/o HTN, 5. h/o h/oT2DM 6. h/o Urinary incontinence # Observe on telemetry for cardiac monitoring of any arrythmias. # ASA 325 mg stat and daily aspirin and Atorvastatin 80mg daily. # serial electrocardiograms, cardiac enzymes every 8 hours # for the management of angina- SL nitroglycerin # 2D Echo # metoprolol succinate 25 BID. # IV heparin after conferring with cardiology, if needed. # check thyroid function # continue ditropan. Full code.
[2017-09-06 06:12] VITALS: BP 118/68
--- NOTE | 2017-09-06 07:00 | PN- Housestaff ---
Objective Last 24 Hrs of Vital Signs/I&O Vital Signs Date Time Temp Pulse Resp B/P B/P Pulse O2 O2 Flow FiO2 Mean Ox Delivery Rate 09/07 611 97.9 53 18 118/68 93 Room Air 09/06 0002 97.8 58 18 119/63 09/06 0001 97.8 58 18 119/63 95 Room Air 09/050 97.7 70 18 130/76 95 Room Air Intake & Output 09/06 0800 09/06 0000 09/05 1600 Intake Total Output Total Balance Patient 95.254 kg 95.254 kg Weight Weight Reported by Patient Measurement Method Current Medications: Current Medications Sig/[place]on[place] Start time Last Medication Dose Route Stop Time Status Admin Aspirin 81 MG DAILY 09/06 09 AC PO Aspirin 325 MG ONCE ONE 09/06 0215 DC PO 09/06 0216 Atorvastatin Calcium 80 MG 1700 09/06 1700 AC PO Clopidogrel Bisulfate 75 MG DAILY 09/06 0900 AC PO Folic Acid 1 MG DAILY 09/06 0900 AC PO Heparin Sodium 5,000 UNIT Q8 09/06 0600 AC 09/06 (Porcine) SC 0611 Insulin Aspart 0 TIDAC 09/06 0800 AC SC Lisinopril 5 MG DAILY 09/06 0900 AC PO Metoprolol Tartrate 25 MG BID 09/06 0900 AC PO Metoprolol Tartrate 0 .STK-MED ONE 09/05 2356 DC PO Metoprolol Tartrate 25 MG ONCE ONE 09/05 2345 DC 09/06 PO 09/05 2346 0002 Multivitamins 1 TAB DAILY 09/06 0900 AC PO Oxybutynin Chloride 5 MG ONCE ONE 09/05 2345 DC 09/06 PO 09/05 2346 0002 Last 24 Hrs of Lab/Sebastián Results Last 24 Hrs of Labs/Mics: Laboratory Tests 09/06/17 0635: Sodium Pending, Potassium Pending, Chloride Pending, Carbon Dioxide Pending, Anion Gap Pending, BUN Pending, Creatinine Pending, BUN/Creatinine Ratio Pending , CBC w Diff Pending, WBC Pending, RBC Pending, Hgb Pending, Hct Pending, MCV Pending, MCH Pending, MCHC Pending, RDW Pending, Plt Count Pending, MPV Pending 09/06/17 0315: Troponin I < 0.01 09/05/171: Anion Gap 12, Estimated GFR 45 L, BUN/Creatinine Ratio 15.3, Glucose 114 H, Calcium 9.2, Magnesium 1.8, Total Bilirubin 0.7, AST 22, ALT 22, Alkaline Phosphatase 56, Troponin I < 0.01, Total Protein 6.3, Albumin 3.4 L, Globulin 2.9, Albumin/Globulin Ratio 1.2, CBC w Diff NO MAN DIFF REQ, RBC 4.81, MCV 87.3, MCH 29.2, MCHC 33.5, RDW 14.6 H, MPV 9.9, Gran % 62.1, Lymphocytes % 20.5, Monocytes % 13.8 H, Eosinophils % 3.3, Basophils % 0.3, Absolute Granulocytes 3.5, Absolute Lymphocytes 1.2, Absolute Monocytes 0.8 H, Absolute Eosinophils 0.2, Absolute Basophils 0, Serum Alcohol < 10.0
--- NOTE | 2017-09-06 08:02 | PN-Observation ---
Chandan Clemens 09/06/17 0801: Observation Note Observation Note _ I have personally examined CAROL DOWELL. him disposition is uncertain at this time. Before a determination can be made, he requires continued observation for the following reasons [chest pain]. Assessment/Plan Medical Assessment: Patient is 76-year-old male presenting with atypical chest pain. Problem List: 1. Chest pain Qualifiers Chest pain type: unspecified Qualified Code: R07.9 - Chest pain, unspecified 2. Hyperlipidemia 3. Hypertension 4. Diabetes Plan: 1. Chest pain (atypical) new obstruction 2. Coronary artery disease status post stent 3. Hypertension 4. Diabetes mellitus DVT/Prophylaxis: mechanical Subjective Follow-up For: Chest pain Complaints: no complaints Subjective: Patient is a 76-year-old male with a history of coronary artery disease status post stent, chronic kidney disease, hypertension and diabetes mellitus who began experiencing chest pain last night while washing dishes at home. The chest pain came on 3 separate times, and was described as sharp, nonradiating near the surface of his chest. Review of Systems Constitutional: Denies: chills, diaphoresis, weakness. Cardiovascular: Denies: chest pain, palpitations. Respiratory: Reports: cough. Denies: short of breath. Gastrointestinal: Denies: abdominal pain, nausea, vomiting. Objective Last 24 Hrs of Vital Signs/I&O Vital Signs Date Time Temp Pulse Resp B/P B/P Pulse O2 O2 Flow FiO2 Mean Ox Delivery Rate 09/06 0953 60 122/62 09/06 0952 122/62 09/06 0612 97.9 53 18 118/68 93 Room Air 09/06 0002 97.8 58 18 119/63 09/06 0001 97.8 58 18 119/63 95 Room Air 09/05 2110 97.7 70 18 130/76 95 Room Air Intake & Output 09/06 1600 09/06 0800 09/06 0000 Intake Total 400 Output Total 650 Balance -250 Intake, Oral 400 Output, Urine 650 Patient 95.254 kg 95.254 kg Weight Weight Reported by Patient Measurement Method Physical Exam General Appearance: Alert, Oriented X3, Cooperative, No Acute Distress Neck: Supple, No JVD, No thryomegaly Cardiovascular: Regular Rate, Normal S1, Normal S2, No Murmurs Lungs: Clear to Auscultation Abdomen: Normal Bowel Sounds, Soft, No Tenderness Current Medications: Current Medications Sig/[place] Start time Last Medication Dose Route Stop Time Status Admin Aspirin 81 MG DAILY 09/06 899 DCD 09/06 PO 0744 Aspirin 325 MG ONCE ONE 09/06 0215 DC PO 09/06 0216 Atorvastatin Calcium 80 MG 1700 09/06 1700 DCD PO Clopidogrel Bisulfate 75 MG DAILY 09/06 899 DCD 09/06 PO 0743 Folic Acid 1 MG DAILY 09/06 899 DCD 09/06 PO 0743 Heparin Sodium 5,000 UNIT Q8 09/06 06 DCD 09/06 (Porcine) SC 0611 Insulin Aspart 0 TIDAC 09/07 799 DCD SC Lisinopril 5 MG DAILY 09/06 899 DCD 09/06 PO 0952 Metoprolol Tartrate 25 MG BID 09/06 899 DCD 09/06 PO 0953 Metoprolol Tartrate 0 .STK-MED ONE 09/05 2356 DC PO Metoprolol Tartrate 25 MG ONCE ONE 09/05 2345 DC 09/06 PO 09/05 2346 0002 Multivitamins 1 TAB DAILY 09/06 899 DCD 09/06 PO 0744 Oxybutynin Chloride 5 MG ONCE ONE 09/05 2345 DC 09/06 PO 09/05 2346 0002 Last 24 Hrs of Labs/Mics: Laboratory Tests 09/06/17 1040: Troponin I < 0.01 09/06/17 0635: Anion Gap 8, Estimated GFR 54 L, BUN/Creatinine Ratio 16.2, CBC w Diff NO MAN DIFF REQ, RBC 4.63 L, MCV 86.6, MCH 29.5, MCHC 34.1, RDW 14.9 H, MPV 10.4, Gran % 57.0, Lymphocytes % 25.1, Monocytes % 12.4 H, Eosinophils % 5.2 H, Basophils % 0.3, Absolute Granulocytes 2.6, Absolute Lymphocytes 1.2, Absolute Monocytes 0.6, Absolute Eosinophils 0.2, Absolute Basophils 0 09/06/17 0315: Troponin I < 0.01, Free T4 1.43, Total T3 1.07, TSH &T3 &Free T4 Intrp 2.740 09/05/17 2121: Anion Gap 12, Estimated GFR 45 L, BUN/Creatinine Ratio 15.3, Glucose 114 H, Calcium 9.2, Magnesium 1.8, Total Bilirubin 0.7, AST 22, ALT 22, Alkaline Phosphatase 56, Troponin I < 0.01, Total Protein 6.3, Albumin 3.4 L, Globulin 2.9, Albumin/Globulin Ratio 1.2, CBC w Diff NO MAN DIFF REQ, RBC 4.81, MCV 87.3, MCH 29.2, MCHC 33.5, RDW 14.6 H, MPV 9.9, Gran % 62.1, Lymphocytes % 20.5, Monocytes % 13.8 H, Eosinophils % 3.3, Basophils % 0.3, Absolute Granulocytes 3.5, Absolute Lymphocytes 1.2, Absolute Monocytes 0.8 H, Absolute Eosinophils 0.2, Absolute Basophils 0, Serum Alcohol < 10.0 Jhonny Gordillo MD 09/06/17 1042: Observation Note Observation Note _ Patient seen and examined. Resting comfortably not in any acute distress. No issues overnight on telemetry monitoring. Denies chest pain currently. Denies shortness of breath or palpitations. Patient reports her pain was 2/10 in intensity prior to presentation. He reports that patient had a court on 2 different occasions prior to presentation. He was ruled out for ACS with negative cardiac enzymes. EKG shows nonspecific T-wave changes. 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 Patient reports that he has had similar pain for the past. He reports that occasionally has pain radiating down the left arm aggravated by movement. On examination he is alert and oriented 3. He is not in any acute distress. There is no tenderness over the chest wall. The pain is not reproducible. On account of cardiac catheterization that did not show evidence of significant obstructive coronary disease though unlikely that his pain is of cardiac etiology. They may be of muscular etiology. He is medically stable to be discharged today. He has been advised to follow-up with his brine tank operator service as an outpatient. Objective Last 24 Hrs of Vital Signs/I&O Vital Signs Date Time Temp Pulse Resp B/P B/P Pulse O2 O2 Flow FiO2 Mean Ox Delivery Rate 09/06 0953 60 122/62 09/06 0952 122/62 09/06 0612 97.9 53 18 118/68 93 Room Air 09/06 0002 97.8 58 18 119/63 09/06 0001 97.8 58 18 119/63 95 Room Air 09/05 2110 97.7 70 18 130/76 95 Room Air Intake & Output 09/06 1600 09/06 0800 09/06 0000 Intake Total Output Total Balance Patient 95.254 kg 95.254 kg Weight Weight Reported by Patient Measurement Method
[2017-09-06 08:43] LABS: ABSOLUTE BASOPHIL COUNT 0 /CUMM (0.0-0.2); ABSOLUTE EOSINOPHIL COUNT 0.2 /CUMM (0.0-0.7); ABSOLUTE GRANULOCYTE CT 2.6 /CUMM (1.4-6.5); ABSOLUTE LYMPH COUNT 1.2 /CUMM (1.2-3.4); ABSOLUTE MONOCYTE COUNT 0.6 /CUMM (0.10-0.60); BASOPHIL % 0.3 % (0.0-2.0); EOSINOPHIL % 5.2 % (0-5); HEMATOCRIT 40.1 % (42-52); MEAN CORPUSCULAR HGB 29.5 PG (27.0-31.0); MEAN CORPUSCULAR HGB CONC 34.1 G/DL (33.0-37.0); MEAN CORPUSCULAR VOLUME 86.6 FL (80.0-94.0); MEAN PLATELET VOLUME 10.4 FL (7.4-10.4); PLATELET COUNT 165 /CUMM (130-400); RBC DISTRIBUTION WIDTH 14.9 % (11.5-14.5); RED BLOOD CELL CT 4.63 /CUMM (4.70-6.10); WHITE BLOOD CELL COUNT 4.6 /CUMM (4.8-10.8)
[2017-09-06 09:53] VITALS: BP 122/62
--- NOTE | 2017-09-06 10:02 | Cons- Cardiology ---
General Information and HPI Consulting Request Date of Consult: 09/06/17 Requested By: Harshal Mckinley MD Reason for Consult: Chest pain, rule out acute coronary syndrome Source of Information: patient, old records Exam Limitations: no limitations History of Present Illness: The patient is a 76-year-old male who is well-known to me. His past medical history is remarkable for hypertension, hyperlipidemia, coronary artery disease, diabetes. The patient had a cardiac catheterization performed in June 2017 which showed no significant obstructive coronary disease. The patient is now admitted as a telemetry observation via the emergency room after experiencing tandem episodes of chest discomfort. He describes the discomfort as left-sided, sharp and stabbing in nature, worse with inspiration, the initial episode lasted less than a few minutes but it subsequently recurred and lasted about an hour. The patient took nitroglycerin with no significant relief. He ultimately went to the emergency room because he was worried about the symptoms. In the emergency room, the patient had no recurrent symptoms. His EKG and labs were unremarkable and he was admitted for observation. Since admission he has had no further symptoms. Allergies/Medications Allergies: Coded Allergies: NO KNOWN ALLERGIES (10/23/15) Home Med List: Aspirin (Aspirin*) 81 MG TAB.CHEW 1 TAB PO DAILY HEART DISEASE Atorvastatin Calcium (Lipitor) 80 MG TABLET 1 TAB PO DAILY CHOLESTEROL ( Reported) Clopidogrel Bisulfate (Clopidogrel) 75 MG TABLET 1 TAB PO DAILY BLOOD THINNER (Reported) Folic Acid 1 MG TABLET 1 TAB PO DAILY SUPPLEMENT (Reported) Lisinopril (Prinivil) 5 MG TABLET 1 TAB PO DAILY BP (Reported) Metformin HCl 500 MG TABLET 1 TAB PO DAILY HIGH BLOOD SUGARS (Reported) Metoprolol Tartrate 25 MG TABLET 1 TAB PO BID BP (Reported) Current Medications: Current Medications Sig/[place] Start time Last Medication Dose Route Stop Time Status Admin Aspirin 81 MG DAILY 09/06 899 AC 09/06 PO 0744 Aspirin 325 MG ONCE ONE 09/06 0215 DC PO 09/06 0216 Atorvastatin Calcium 80 MG 1700 09/06 1700 AC PO Clopidogrel Bisulfate 75 MG DAILY 09/06 899 AC 09/06 PO 0743 Folic Acid 1 MG DAILY 09/06 09 AC 09/06 PO 0743 Heparin Sodium 5,000 UNIT Q8 09/06 06 AC 09/06 (Porcine) SC 0611 Insulin Aspart 0 TIDAC 09/06 0800 AC SC Lisinopril 5 MG DAILY 09/06 899 AC 09/06 PO 52 Metoprolol Tartrate 25 MG BID 09/06 899 AC 09/06 PO 0953 Metoprolol Tartrate 0 .STK-MED ONE 09/05 2356 DC PO Metoprolol Tartrate 25 MG ONCE ONE 09/05 2345 DC 09/06 PO 09/05 2346 0002 Multivitamins 1 TAB DAILY 09/06 899 AC 09/06 PO 0744 Oxybutynin Chloride 5 MG ONCE ONE 09/05 2345 DC 09/06 PO 09/05 2346 0002 Past History Travel History Traveled to [place] past 21 day No Medical History Blood Transfusion Hx: No Neurological: NONE EENT: NONE Cardiovascular: CAD, hypertension, hyperlipidemia, myocardial infarction, STENTS Respiratory: NONE Gastrointestinal: GERD Hepatic: NONE Renal: NONE Musculoskeletal: chronic back pain Psychiatric: alcohol dependence Endocrine: diabetes Blood Disorders: NONE Cancer(s): NONE 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 self Services at Home: None Smoking Status: Former Smoker ETOH Use: denies use Illicit Drug Use: denies illicit drug use Functional Ability ADLs Independent: dressing, eating, toileting, bathing. Ambulation: independent IADLs Independent: shopping, housework, finances, food prep, telephone, transportation , medication admin. Exam & Diagnostic Data Vital Signs and I&O Vital Signs Date Time Temp Pulse Resp B/P B/P Pulse O2 O2 Flow FiO2 Mean Ox Delivery Rate 09/06 0853 60 122/62 09/06 0852 122/62 09/06 0512 97.9 53 18 118/68 93 Room Air 09/06 0002 97.8 58 18 119/63 09/06 0001 97.8 58 18 119/63 95 Room Air 09/05 2109 97.7 70 18 130/76 95 Room Air Intake & Output 09/06 1600 09/06 0000 09/05 1600 09/05 0000 Intake Total Output Total Balance Patient 210 lb 210 lb Weight Weight Reported by Patient Measurement Method Physical Exam: General Appearance: well developed/nourished, elderly male, alert, awake, oriented Head: normal HEENT: Normal Neck: supple, JVP normal, carotid upstrokes normal bilaterally, no masses or thyromegaly Respiratory: chest non-tender, clear to auscultation and percussion bilaterally Cardiovascular: regular rate/rhythm, normal S1, S2, 1-2/6 systolic murmur Abdomen: normal bowel sounds, soft, non-tender Extremities: normal inspection, no edema Vascular: Pulses are 2+ and equal bilaterally Neurologic: Grossly normal/nonfocal Labs/[place]án Results: Laboratory Tests 09/06 09/06 09/06 1040 0635 0315 Chemistry Sodium (137 - 145 mmol/L) 141 Potassium (3.5 - 5.1 mmol/L) 4.5 Chloride (98 - 107 mmol/L) 106 Carbon Dioxide (22 - 30 mmol/L) 27 Anion Gap (5 - 16) 8 BUN (9 - 20 mg/dL) 21 H Creatinine (0.7 - 1.2 mg/dL) 1.3 H Estimated GFR (>60 ml/min) 54 L BUN/Creatinine Ratio (7 - 25 %) 16.2 Troponin I (<0.11 ng/ml) Pending < 0.01 Free T4 (0.78 - 2.44 ng/dL) 1.43 Total T3 (0.97 - 1.69 ng/mL) 1.07 TSH &T3 &Free T4 Intrp (0.27 - 4.20 uIU/mL) 2.740 Hematology CBC w Diff NO MAN DIFF REQ WBC (4.8 - 10.8 /CUMM) 4.6 L RBC (4.70 - 6.10 /CUMM) 4.63 L Hgb (14.0 - 18.0 G/DL) 13.7 L Hct (42 - 52 %) 40.1 L MCV (80.0 - 94.0 FL) 86.6 MCH (27.0 - 31.0 PG) 29.5 MCHC (33.0 - 37.0 G/DL) 34.1 RDW (11.5 - 14.5 %) 14.9 H Plt Count (130 - 400 /CUMM) 165 MPV (7.4 - 10.4 FL) 10.4 Gran % (42.2 - 75.2 %) 57.0 Lymphocytes % (20.5 - 51.1 %) 25.1 Monocytes % (1.7 - 9.3 %) 12.4 H Eosinophils % (0 - 5 %) 5.2 H Basophils % (0.0 - 2.0 %) 0.3 Absolute Granulocytes (1.4 - 6.5 /CUMM) 2.6 Absolute Lymphocytes (1.2 - 3.4 /CUMM) 1.2 Absolute Monocytes (0.10 - 0.60 /CUMM) 0.6 Absolute Eosinophils (0.0 - 0.7 /CUMM) 0.2 Absolute Basophils (0.0 - 0.2 /CUMM) 0 09/05 2120 Chemistry Sodium (137 - 145 mmol/L) 142 Potassium (3.5 - 5.1 mmol/L) 4.1 Chloride (98 - 107 mmol/L) 103 Carbon Dioxide (22 - 30 mmol/L) 26 Anion Gap (5 - 16) 12 BUN (9 - 20 mg/dL) 23 H Creatinine (0.7 - 1.2 mg/dL) 1.5 H Estimated GFR (>60 ml/min) 45 L BUN/Creatinine Ratio (7 - 25 %) 15.3 Glucose (65 - 99 mg/dL) 114 H Calcium (8.4 - 10.2 mg/dL) 9.2 Magnesium (1.6 - 2.3 mg/dL) 1.8 Total Bilirubin (0.2 - 1.3 mg/dL) 0.7 AST (17 - 59 U/L) 22 ALT (21 - 72 U/L) 22 Alkaline Phosphatase (< 127 U/L) 56 Troponin I (<0.11 ng/ml) < 0.01 Total Protein (6.3 - 8.2 g/dL) 6.3 Albumin (3.5 - 5.0 g/dL) 3.4 L Globulin (1.9 - 4.2 gm/dL) 2.9 Albumin/Globulin Ratio (1.1 - 2.2 %) 1.2 Hematology CBC w Diff NO MAN DIFF REQ WBC (4.8 - 10.8 /CUMM) 5.6 RBC (4.70 - 6.10 /CUMM) 4.81 Hgb (14.0 - 18.0 G/DL) 14.1 Hct (42 - 52 %) 42.0 MCV (80.0 - 94.0 FL) 87.3 MCH (27.0 - 31.0 PG) 29.2 MCHC (33.0 - 37.0 G/DL) 33.5 RDW (11.5 - 14.5 %) 14.6 H Plt Count (130 - 400 /CUMM) 180 MPV (7.4 - 10.4 FL) 9.9 Gran % (42.2 - 75.2 %) 62.1 Lymphocytes % (20.5 - 51.1 %) 20.5 Monocytes % (1.7 - 9.3 %) 13.8 H Eosinophils % (0 - 5 %) 3.3 Basophils % (0.0 - 2.0 %) 0.3 Absolute Granulocytes (1.4 - 6.5 /CUMM) 3.5 Absolute Lymphocytes (1.2 - 3.4 /CUMM) 1.2 Absolute Monocytes (0.10 - 0.60 /CUMM) 0.8 H Absolute Eosinophils (0.0 - 0.7 /CUMM) 0.2 Absolute Basophils (0.0 - 0.2 /CUMM) 0 Toxicology Serum Alcohol (<10 MG/DL) < 10.0 Diagnostic Data EKG Results Unchanged CXR Results FINDINGS: Lung volumes are low. No focal consolidation or mass. No pleural effusion or pneumothorax. Cardiac silhouette is prominent, likely accentuated by AP technique and low lung volumes. Degenerative changes of the bilateral shoulders. IMPRESSION: Low lung volumes but no acute pulmonary disease. Assessment/Plan Assessment/Plan Assessment: 1. Atypical chest discomfort-by history, the patient's symptoms are most suggestive of musculoskeletal discomfort. 2. History of coronary artery disease, status post prior stent-recent cardiac catheterization in June 2017 showed patent stent with no new coronary disease 3. Hypertension 4. Hyperlipidemia 5. Diabetes 6. Chronic renal insufficiency Recommendations: -At the present time, I do not see any evidence of any acute cardiac issue. Patient symptoms are atypical. There are no new EKG changes. Serial troponins are negative. Recent cardiac catheterization showed no evidence of any significant obstructive coronary disease. -Out of bed and ambulate with monitoring -If the patient remains asymptomatic I would discharge the patient home later today on his current medical regimen. -Follow-up with me in the office in 1-2 weeks. Consult Acknowledgment - Thank you for your consult request.
--- NOTE | 2017-09-06 11:39 | Patient Discharge Instructions ---
Discharge Instructions General Discharge Information You were seen/treated for: Chest pain Watch for these problems: If chest pain recurs, especially if it is accompanied by arm, jaw or neck pain, sudden sweating, nausea, palpitations or dizziness, please go to your nearest emergency department. Special Instructions: Please follow-up with your supervisor special education and primary care doctor in the next week. Diet Continue normal diet: Yes Recommended Diet: Heart Healthy Activity Full Activity/No Limits: No Activity Self Limited: Yes Acute Coronary Syndrome Inclusion Criteria At DC or during hospital stay patient has or had the following: ACS DIAGNOSIS No Discharge Core Measures Meds if any: Prescribed or Continued at Discharge Meds if any: NOT Prescribed or Continued at Discharge Congestive Heart Failure Inclusion Criteria At DC or during hospital stay patient has or had the following: CHF DIAGNOSIS No Discharge Core Measures Meds if any: Prescribed or Continued at Discharge Meds if any: NOT Prescribed or Continued at Discharge Cerebrovascular accident Inclusion Criteria At DC or during hospital stay patient has or had the following: CVA/TIA Diagnosis No Discharge Core Measures Meds if any: Prescribed or Continued at Discharge Meds if any: NOT Prescribed or Continued at Discharge Venous thromboembolism Inclusion Criteria VTE Diagnosis No VTE Type NONE VTE Confirmed by (Test) NONE Discharge Core Measures - Per Current guidelines, there needs to be overlap - treatment for the first 5 days of Warfarin therapy. - If discharged on Warfarin prior to 5 days of - overlap therapy, the patient will need to be - assessed for post discharge needs including - *Post discharge parental anticoagulation - *Warfarin and/or parental anticoagulation education - *Follow up date to check INR post discharge At least 5 days overlap therapy as Inpatient No Meds if any: Prescribed or Continued at Discharge Note: Overlap Therapy is Warfarin and Anticoagulant Meds if any: NOT Prescribed or Continued at Discharge
== END 2017-09-06 14:45 ==
LOC: ERH 20:56 → ERHI 09-06 00:13 → ENRESERV 09-06 01:29 → 1NO 09-06 01:52 → ENPENDDIS 09-06 13:16 → ENTRNSPT 09-06 14:14 → EDTRNSPTSTS 09-06 14:22 → CMPTRNSPT 09-06 14:29 → 1NO 09-06 14:45
PROVIDERS: Emergency Medicine; Internal Medicine Endocrinology, Diabetes & Metabolism
DX: R07.89 Other chest pain (principal); E78.5 Hyperlipidemia, unspecified; Z79.84 Long term (current) use of oral hypoglycemic drugs; Z95.5 Presence of coronary angioplasty implant and graft; I25.10 Atherosclerotic heart disease of native coronary artery without angina pectoris; Z79.82 Long term (current) use of aspirin; Z79.01 Long term (current) use of anticoagulants; I25.2 Old myocardial infarction; E11.22 Type 2 diabetes mellitus with diabetic chronic kidney disease; I12.9 Hypertensive chronic kidney disease with stage 1 through stage 4 chronic kidney disease, or unspecified chronic kidney disease; N18.3 Chronic kidney disease, stage 3 (moderate); K21.9 Gastro-esophageal reflux disease without esophagitis; F10.20 Alcohol dependence, uncomplicated; Z87.891 Personal history of nicotine dependence; M50.00 Cervical disc disorder with myelopathy, unspecified cervical region
CPT/HCPCS: 6020; 36592; 71045; 82436; 93005; 93010; 96372; G0378; G0480; J1644; J3490